=== PATIENT | female | born 1995 | race Caucasian/White ===

== ENCOUNTER 2020-03-28 04:00 | Emergency (ER) | payer OTHER ==
--- NOTE | 2020-03-28 04:25 | EDM.PDOC ---
ED HPI GENERAL MEDICAL PROBLEM - General Chief Complaint: Abdominal Pain Stated Complaint: abd pain in injury Time Seen by Provider: 03/28/20 04:10 Source of Information: Reports: Patient History Limitations: Reports: No Limitations - History of Present Illness INITIAL COMMENTS - FREE TEXT/NARRATIVE: Pt presents to ER after being hit in upper abdomen with part while at work Pt is 25 weeks Wants to be checked Onset: Today, Sudden Duration: Minutes: Location: Reports: Abdomen Context: Reports: Trauma - Related Data Allergies Allergy/AdvReac Type Severity Reaction Status Date / Time No Known Allergies Allergy Verified 03/28/20 04:15 Home Meds: Home Meds Levothyroxine Sodium [Synthroid] 25 mcg PO DAILY 03/28/20 [History] Pnv No.95/Ferrous Fum/Folic AC [ Caplet] 1 each PO DAILY 03/28/20 [History] ED ROS GENERAL - Review of Systems Review Of Systems: See Below HEENT: Reports: No Symptoms Respiratory: Reports: No Symptoms Cardiovascular: Reports: No Symptoms GI/Abdominal: Reports: Abdominal Pain : Reports: No Symptoms Musculoskeletal: Reports: No Symptoms ED EXAM, GI/ABD - Physical Exam Exam: See Below Exam Limited By: No Limitations General Appearance: Alert, WD/WN, No Apparent Distress Head: Atraumatic Neck: Supple Respiratory/Chest: Lungs Clear Cardiovascular: Regular Rate, Rhythm GI/Abdominal Exam: Soft, Non-Tender, Other (No brusing No swelling) (Female) Exam: Other (FHT's 140's) Course - Re-Assessments/Exams Free Text/Narrative Re-Assessment/Exam: 03/28/20 04:24 Pt stable in ER Departure - Departure Time of Disposition: 04:30 Disposition: Home, Self-Care 01 Clinical Impression: Contusion of abdominal wall, initial encounter - Discharge Information *PRESCRIPTION DRUG MONITORING PROGRAM REVIEWED*: Not Applicable *COPY OF PRESCRIPTION DRUG MONITORING REPORT IN PATIENT DAVID: Not Applicable Instructions: Contusion, [id number] Referrals: PCP,None [Primary Care Provider] - Additional Instructions: Follow up in clinic Tylenol as needed
== END 2020-03-28 04:50 | disposition home or self-care (01) ==
LOC: LL.ED 04:00
DX: O9A.212 Injury, poisoning and certain other consequences of external causes complicating pregnancy, second trimester (principal); S30.1XXA Contusion of abdominal wall, initial encounter; Z3A.25 25 weeks gestation of pregnancy; W22.8XXA Striking against or struck by other objects, initial encounter; Y92.89 Other specified places as the place of occurrence of the external cause; Y99.0 Civilian activity done for income or pay
CPT/HCPCS: 99283